=== PATIENT | male | born 1990 | race Caucasian/White ===

== ENCOUNTER 2019-03-26 09:13 | Emergency (ER) | payer SELFPAY ==
[2019-03-26 09:19] VITALS: BP 127/57; PULSE 62; RESP 18; TEMP 36.5; O2SAT 99
--- NOTE | 2019-03-26 09:46 | ED.GENADUL_ITS ---
Discharge Plan Disposition Patient Disposition: HOME Condition: Good Discharge Details Chief Complaint: Orthopedic Clinical Impression: Bursitis, prepatellar Primary Care Provider: Kierra Armijo ED Provider: Indigo Johnson Home Meds and New Rx's Prescriptions: No Action ibuprofen 800 MG tablet 800 mg PO TID Qty: 30 RF: 0 oxycodone 10 MG tablet 10 mg PO Q6H PRN PRNQty: 20 RF: 0 Discharge Instructions Instructions: Knee Bursitis (ED) Additional Instructions: Ice to the area frequently as discussed. Use anti-inflammatory [id number] as discussed with food in your stomach. Austen wrap to the area as discussed. Avoid kneeling directly on your knee. Please use knee protection when working to help prevent this in the future. Follow-up with orthopedic doctor if not improving in the next week as discussed. Observe for any signs of infection, redness, increase in swelling, pain, ill feeling or fever. Return to the emergency room for any concerns of infection or worsening. Stand Alone Forms: Work Release Referrals: Willard Rosales MD [ [facility] STAFF PHYSICIAN] - Medical Decision Making Patient presents for left knee swelling without obvious injury, trauma or fall. Patient does work on his knees and has been putting on a roof recently. Patient presents with an obvious left prepatellar bursitis without evidence of associated infection. Patient is full range of motion. No bony pain with palpation. Given his mechanism of injury of the benign exam I do not feel x-ray is warranted at this time. Rene encouraged, counseled regarding prepatellar bursitis without infection. Counseled regarding alarming symptoms for which the patient was stable and requested discharge. Prior to discharge, my usual and customary return precautions were reviewed with the patient - this included follow-up instructions and reasons to return to the Emergency Department if conditions worsens, does not improve as expected, or other new concerns arise. He should have return. Counseled regarding referral to orthopedic doctor if necessary. Austen wrap provided. Work note provided for few days of rest. Patient reports his understanding and agrees with plan of care. HPI General Date/Time Provider Initiated Documentation: 03/26/19 09:22 . HPI Narrative: This is a 28-year-old patient who presents for complaints of left knee swelling. Patient denies associated pain. Patient reports no limping gait. 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 Patient reports working on his knees. Patient reports onset of swelling in the last few days Patient denies any history of similar. No other concerns or complaints. No significant exacerbating factors. No relieving factors. Related Data Home Medications Medication Instructions Recorded Confirmed ibuprofen 800 mg PO TID #30 tab 10/31/12 oxycodone 10 mg PO Q6H PRN PRN #20 tab 08/15/16 Previous Rx's Medication Instructions Recorded ibuprofen 800 mg PO TID #30 tab 10/31/12 oxycodone 10 mg PO Q6H PRN PRN #20 tab 08/15/16 Allergies Allergy/AdvReac Type Severity Reaction Status Date / Time No Known Allergies Allergy Unverified 10/31/12 10:14 General Stated Complaint: Orthopedic SAUL: 4 Review of Systems All systems reviewed & are unremarkable except as noted in HPI and below Musculoskeletal Musculoskeletal: Denies abnormal gait, Denies deformity, Reports joint swelling, Reports stiffness and Denies tingling Neurologic Neurologic: Denies abnormal gait and Denies tingling PFSH Surgical History Appendectomy (~2008) Family History Mother No problems noted. Father No problems noted. Sister No problems noted. Brother No problems noted. Grandfather Personal history of malignant neoplasm LUNG Grandmother Personal history of malignant neoplasm BREAST Social History Smoking/Tobacco Use Status: Former Tobacco Use Alcohol Intake: current Alcohol Intake frequency: a few times a week Drug use: Occasionally Substance use type: marijuana Do you feel safe at home: Yes Exam Narrative Exam Narrative: CONST: Healthy appearing patient, in no acute distress. Well hydrated. Alert and alert. MUSCULOSKELETAL: Normal Gait. FROM of all extremities. Patient has an obvious left knee prepatellar bursitis without an identifiable infection. No erythema or warmth. Fluctuance noted at the prepatellar bursa with no associated joint effusion. Straight leg raise intact. Full range of motion. No significant joint line pain. No pain with patella shifting. SKIN: Normal. Dry. No rashes. NEURO: Alert and awake. Speech clear. PSYCH: Normal affect. Cooperative. Course Vital Signs Vital signs: Vital Signs Temperature 36.5 C 03/26/19 09:19 Pulse 62 03/26/19 09:19 Respiratory Rate 18 03/26/19 09:19 Blood Pressure 127/57 L 03/26/19 09:19 Pulse Oximetry 99 03/26/19 09:19 Temperature 36.5 C 03/26/19 09:19 Temperature Source Skin 03/26/19 09:19 Pulse 62 03/26/19 09:19 Respiratory Rate 18 03/26/19 09:19 Respiratory Effort Non-Labored 03/26/19 09:20 Blood Pressure 127/57 L 03/26/19 09:19 Blood Pressure Position Sitting 03/26/19 09:19 Pulse Oximetry 99 03/26/19 09:19 Oxygen Delivery Method Room Air 03/26/19 09:19 Oxygen Flow Rate 0 03/26/19 09:19
== END 2019-03-26 09:55 | disposition home or self-care (01) ==
PROVIDERS: Emergency Provider Physician Assistant; PCP Nurse Practitioner Family
DX: M70.42 Prepatellar bursitis, left knee (principal)
CPT/HCPCS: 99282

== ENCOUNTER 2021-09-03 01:57 | Outpatient (CLI) | payer BC, SELFPAY ==
[2021-09-03 12:35] LABS: Source Nasal/Nares
[2021-09-03 17:33] LABS: COVID-19 PCR Negative (Negative)
== END 2021-09-03 01:58 | disposition home or self-care (01) ==
LOC: LBO 01:58
PROVIDERS: PCP Family Medicine; Visit Provider Surgery
DX: Z20.822 Contact with and (suspected) exposure to COVID-19 (principal); Z01.818 Encounter for other preprocedural examination
CPT/HCPCS: 87635

== ENCOUNTER 2021-09-05 08:02 | Day surgery (SDC) | payer BC, SELFPAY ==
--- NOTE | 2021-09-04 14:34 | W.COLOREPORT ---
Colonoscopy Report Date of procedure: 09/05/21 Pre-op diagnosis general: Rectal bleeding/family history of ulcerative colitis Post-op diagnosis procedure note: other (Rectal polyps x2) Surgeon: Mandi Reagan Anesthesia Type: General:No Airway Estimated blood loss (mL): 1 Pathology: other Complications: None Disposition: same day Prep: Miralax/Dulcolax Retraction Time: 13 Procedure Description: After informed consent was obtained the patient was taken to the procedure room and placed in a left decubitous position. Monitors were applied and a time out was done. The patients name, date of , procedure, allergies to medications and metal in their body was reviewed. The patient was then sedated. Once sedated and comfortable a rectal exam was done. External exam was normal. Internal exam revealed a normal sphincter tone and no palpable masses. The prostate 13 The scope was then introduced and retrofelexed. No internal hemorrhoids were identified. He does have 2 small polyps in the rectum. One is superior it is a flat 5 mm polyp and this is removed with a cold biopsy forcep. Another is right at the anal rectal junction it is 5 mm but pedunculated and this is removed with a hot snare. All specimen is retrieved and no bleeding is noted the scope was then advanced to the cecum n difficulty. The TI and appendiceal orifice were identified. The prep was be BPS 3 in all segments for a total of 9. The scope was then slowly retracted over 13 minutes back into the rectum. There are no AVMs or diverticula visualized today. Biopsies are taken of the cecum/80/60/30 centimeters and the rectum. The mucosa appears pink and healthy with normal vasculature. There is no sign of ulcerative colitis or other abnormalities other than the 2 rectal polyps. Scope was removed and the patient was woken up and taken back to Same day surgery in stable condition. The patient tolerated the procedure well and there were no immediate complications. Follow up: The patient should follow up in 7 years, path pd unless they develop changes in bowel habits or other new gastrointestinal complaints.
--- NOTE | 2021-09-04 14:35 | PDOC.DSDIS_ITS ---
Discharge Plan Disposition Patient Disposition: HOME Condition: Good Discharge Details Reason For Visit: colo Attending Provider: Mandi Reagan Primary Care Provider: Zhen Dinero Home Meds and New Rx's Prescriptions: Discontinued polyethylene glycol 3350 17 gram/dose powder 238 g PO ONCE Qty: 238 0RF Rx Instructions: take per colonoscopy instructions bisacodyl [Dulcolax (bisacodyl)] 5 mg tablet,delayed release (DR/EC) 5 mg PO ONCE Qty: 4 0RF Rx Instructions: take per colonoscopy instructions No Action docusate sodium 100 mg capsule 100 mg PO BID Qty: 180 3RF Discharge Instructions Additional Instructions: DSU Colonoscopy Post- Op Instructions Instructions for Everyone who is given Anesthesia: For your safety, please do the following for the next twenty-four (24) hours: *Do Not operate a motor vehicle (car, truck, motorcycle, etc.) *Do Not drink alcoholic beverages or use any recreational drugs for the first 24 hours or while taking pain medications. The medications in your body may have a reaction that can be dangerous. *Do Not make any important decisions or sign any important papers. Findings:x2 polyps No hemorrhoids/fissures/or signs of ulcerative colitis Follow up: We did remove 2 polyps today as well as do some biopsies. My office will send a letter in 2 to 3 weeks time with results of the polyp pathology and when we want you to repeat the colonoscopy. 1. No lifting over 20 pounds or strenuous activity for the first 24 hours after your procedure. After 24 hours there are no restrictions on your activity but you may feel fatigued for a few days. 2. After you arrive home you may have a light meal and return to your normal diet as you can tolerate it without feeling sick to your stomach. 3. You may have a bloated, gaseous feeling in your belly (abdomen) after a colonoscopy. Passing gas and belching will help. Walking or lying down on your left side with your knees flexed may relieve the discomfort. Call the office at [phone] (Office) or [phone] (Hospital) right away if you notice any of the following: a.Vomiting of blood or ?coffee ground stools?. b.Rectal bleeding 1Tbsp, blood clots or continuous bleeding. c.Severe belly (abdominal) pain. d.A hard distended belly (abdomen) and an inability to pass gas. 4. Please don?t expect to have a normal BM (bowel movement) for 2-3 days after your procedure. 5. If there are questions regarding the findings of your procedure, please contact your doctor 6. If you are unable to contact your doctor with a problem, contact the hospital at [phone]. 7. Continue all your regular medications unless directed otherwise. I understand the above instructions and have no questions. Signature of Patient or Adult Escort Name of Responsible Adult Escort Signature of Nurse Date/Time Activity:: See above Diet:: See above Discharge Orders Discharge Orders: Discharge Order (Routine); Ordered 09/04/21 Ordered By: Mandi Reagan
[2021-09-05 08:27] VITALS: BP 121/81; PULSE 63; RESP 16; TEMP 36.6; O2SAT 98
[2021-09-05] MEDS: Lactated Ringers 1,000 ML 80 ML IV (08:31)
--- NOTE | 2021-09-05 08:46 | W.ANESPRE ---
General Info Date of Service Date Performed: 09/05/21 Height: 6 ft Weight: 89.2 kg Body Mass Index (BMI): 26.6 Surgical Procedure: Operation Date: 09/05/21 09:05 Proposed Procedure Side Surgeon p Colonoscopy w/poss. internal hemorrhoid banding Mandi eRagan, Meds Allergies and Home Medications Allergies Allergy/AdvReac Type Severity Reaction Status Date / Time No Known Allergies Allergy Unverified 09/05/21 08:26 Home Medication Medication Instructions Recorded docusate sodium 100 mg capsule 100 mg PO BID #180 cap 07/30/21 Current Visit Medications: Current Medications Generic Name Dose Route Start Last Admin Trade Name Freq PRN Reason Stop Dose Admin Hyoscyamine Sulfate 0.125 mg 09/04/21 14:34 Hyoscyamine 0.125 Mg Sl/Oral/Chew SL DIRECTED PRN Ringer's Solution 1,000 mls @ 80 mls/hr 09/05/21 06:00 09/05/21 08:31 IV 10/04/21 23:59 80 mls/hr INFUSION FAREED Administration IV Miscellaneous Supplies 1 each 09/05/21 06:00 Iv Access IV 10/04/21 23:59 DIRECTED FAREED Ondansetron HCl 4 mg 09/04/21 14:34 Ondansetron 4 Mg/2 Ml Vial IVP Q4H PRN PRN Nausea / Vomiting Sodium Chloride 0 ml 09/05/21 06:00 Normal Saline Flush 10 Ml Syr IV 10/04/21 23:59 PRN PRN Sodium Chloride 0 ml 09/05/21 06:00 Normal Saline 10 Ml Vial IJ 10/04/21 23:59 DIRECTED PRN Sterile Water 0 ml 09/05/21 06:00 Water,Injection,Sterile 10 Ml Vial IJ 10/04/21 23:59 DIRECTED PRN PFSH Active Problems Active Problems: Problem Status Onset Code Unwanted fertility Z30.09 Surgical History Surgical History Appendectomy (~2008) Tobacco Smoking/Tobacco Use Status: Former Tobacco Use Passive smoking exposure: No Second hand exposure: No Alcohol Alcohol Intake: current Alcohol intake frequency: a few times a week Substance Use Substance use: Occasionally Substance use type: marijuana Vital Signs and Lab Results Vital Signs Most Recent Vital Signs in EMR: Most Recent Vital Signs Temp Pulse Resp BP Pulse Ox 36.6 C 63 16 121/81 98 09/05/21 08:27 09/05/21 08:27 09/05/21 08:27 09/05/21 08:27 09/05/21 08:27 Lab Results Blood Type / Crossmatch: No Data to Display Complete Blood Count: No Data to Display Complete Metabolic Panel: No Data to Display Liver Function Panel: No Data to Display Coagulation Panel: No Data to Display Cardiac Panel: No Data to Display Arterial Blood Gas: No Data to Display Venous Blood Gas: No Data to Display Pancreas Panel: No Data to Display Thyroid Panel: No Data to Display Infectious Disease: Coronavirus (COVID-19)(PCR) Negative (Negative) 09/03/21 08:34 09/03/21 Coronavirus 2019 Source Nasal/Nares 09/03/21 08:34 09/03/21 Blood Cultures: No Data to Display Toxicology Panel: No Data to Display Anesthesia Assessment and Plan Anesthesia History Personal History: No History of Anesthesia Complications Family History: No Family History of Anesthesia Complications Exercise Tolerance Exercise Tolerance: Metabolic Equivalents>4 Pertinent Negatives Pertinent Negatives: No Symptoms of GERD Cardiac & Pulmonary Exam Cardiac Exam: Normal S1/S2 Heart Sounds Pulmonary Exam: Clear Bilateral Breath Sounds Implantable Cardiac Device Does patient have a Pacemaker or an ICD?: No Airway Exam Known Difficult Airway: No Mallampati Class: 2 Mouth Opening: Normal (> 3cm) Thyromental Distance: Greater than 3 cm Neck Range of Motion: Full ROM Neck Circumference: Normal Teeth Condition: Normal Dentition ASA Classification ASA Score: ASA 2 Emergency Case?: No NPO Status NPO Status: NPO Clears >2 hours, Solids >8 hours Anesthesia Plan Resuscitation Status: Full Code Anesthesia Technique: General Anesthesia Airway Planned: Natural Airway Monitors Used: Standard Monitors
[2021-09-05 09:06] VITALS: BMI 26.6
--- NOTE | 2021-09-05 09:28 | BOWEL_PTH ---
PATIENT: Thang Rai V LOC: [facility] U#:[id number] AGE/SX: 31/M ROOM: RE09/05/[address]: Mandi Reagan : 1990 BED: DIS: 09/05/2021 SPEC #: [id number] RECD: 09/05/21 12:29 STATUS: LILLY RE #: [id number] KACI: 09/05/21 09:[address]: Mandi Reagan DEPT: Surgical Specimen RECD BY: Saskia Giles ENTERED: 09/05/21 12:33 SP TYPE: Bowel OTHR DR: Zhen Dinero Tissues: 1 - BIOPSY BOWEL 2 - BIOPSY BOWEL 3 - BIOPSY BOWEL 4 - BIOPSY BOWEL 5 - BIOPSY BOWEL 6 - BIOPSY BOWEL 7 - BIOPSY BOWEL Procedures: GROSS AND MICRO LEVEL 4 Comments: [id number]
[2021-09-05 10:00] VITALS: BP 113/66; PULSE 74; RESP 18; TEMP 36.3; O2SAT 100
--- NOTE | 2021-09-05 10:12 | W.ANESPOSTOP ---
Postoperative Evaluation Date, Time and Location Date Performed: 09/05/21 Time Performed: 10:12 Patient Location: Day Surgery Unit Vital Signs Most Recent Imported Vital Signs: Most Recent Vital Signs Temp Pulse Resp BP Pulse Ox 36.6 C 63 16 121/81 98 09/05/21 08:27 09/05/21 08:27 09/05/21 08:27 09/05/21 08:27 09/05/21 08:27 Most Recent Manually Entered Vital Signs: Adult Blood Pressure: 113/64 Heart Rate: 74 Respirations: 18 Oxygen Saturation (%): 100 Temperature (C): 36.3 C Pain Score (0-10 Scale): 0 Pain Score Most Recent Pain Score: Most Recent Pain Score Pain Level 0 09/05/21 08:27 Assessment Mental Status: Awake (Alert & Oriented to Patient Baseline) Airway and Respiratory Function: Patent airway with normal (patient baseline) respiratory exam Cardiovascular Function: Hemodynamically Stable Hydration Status: Adequately Hydrated Nausea & Vomiting: No Nausea or Vomiting Pain: Pt. Denies Any Pain Peripheral Nerve Block: Patient did not receive a nerve block
[2021-09-05 10:15] VITALS: BP 113/64; PULSE 74; RESP 18; TEMPC 36.3; O2SAT 100
[2021-09-05 10:30] VITALS: BP 123/71; PULSE 55; RESP 18; TEMP 36.3; O2SAT 97
== END 2021-09-05 11:03 | disposition home or self-care (01) ==
PROVIDERS: PCP Family Medicine; Visit Provider Surgery
PROC: 0DJD8ZZ Inspection of Lower Intestinal Tract, Via Natural or Artificial Opening Endoscopic (ICD-10-PCS; CPT 45378; principal; 2021-09-05 09:00)
DX: K62.5 Hemorrhage of anus and rectum (principal); K62.1 Rectal polyp; Z83.79 Family history of other diseases of the digestive system; K63.89 Other specified diseases of intestine
CPT/HCPCS: 45385; 45380; 88305

== ENCOUNTER 2022-10-26 10:10 | Emergency (ER) | payer BC, SELFPAY ==
[2022-10-26 10:16] VITALS: BP 122/68; PULSE 66; RESP 18; TEMP 36.6; O2SAT 98
--- NOTE | 2022-10-26 10:25 | W.ED.GENAD ---
Discharge Plan Disposition Patient Disposition: Home Discharge Details Clinical Impression: Laceration of right middle finger, Immunization, tetanus-diphtheria Primary Care Provider: Jeremy Issa ED Provider: Dillon Pinzon Home Meds and New Rx's Prescriptions: Continued docusate sodium 100 mg capsule 100 mg PO BID Qty: 180 3RF Discharge Instructions Instructions: Finger Laceration (ED) Additional Instructions: You were seen in the emergency department for your finger laceration which was closed with Steri-Strips. As we discussed, if you develop fevers any foul-smelling drainage or any signs of pus from your finger please return to the emergency department. Please also keep your wound clean and dry. Follow-up with primary care provider next week as needed. Medical Decision Making This is an overall very well-appearing ambidextrous 32-year-old normothermic and not tachycardic male with right superficial long finger laceration which was irrigated extensively and cleaned by emergency department manufacturing process technician Chaz prior to primary closure using Steri-Strips which I performed. Patient will be placed by emergency department manufacturing process technician Chaz in a metal splint to decrease movement and enable wound healing. Patient and I discussed return indications including any fevers any foul-smelling drainage or any signs of pus from his wound. He is not a diabetic and he denies routine tobacco so my suspicion for any increased risk for infection is exceedingly low. No other injuries. No signs of necrotizing soft tissue infection. Tetanus was updated. We will proceed with an empiric trial of expectant outpatient management. HPI General Date/Time Provider Initiated Documentation: 10/26/22 10:25. HPI Narrative: This is an ambidextrous 32-year-old male arriving via private vehicle in setting of right middle finger laceration he sustained earlier today. Patient reports that he was pulling something from below a lawnmower. He reportedly caught his right middle finger on the blade. He did not fall or strike his head. He has not had daily tobacco user and denies history of insulin. He does smoke marijuana and occasionally drinks ethanol. His laceration is no longer bleeding. He is moving his finger normally he reports. Related Data Home Medications Medication Instructions Recorded Confirmed docusate sodium 100 mg capsule 100 mg PO BID #180 caps 07/17/22 07/17/22 Previous Rx's Medication Instructions Recorded docusate sodium 100 mg capsule 100 mg PO BID #180 caps 07/17/22 Allergies Allergy/AdvReac Type Severity Reaction Status Date / Time No Known Allergies Allergy Unverified 10/26/22 10:19 General Stated Complaint: Laceration SUAL: 4 PFSH All Active Problems (Updated 10/26/22 @ 10:36 by Dillon Pinzon MD) Laceration of right middle finger (Acute) Immunization, tetanus-diphtheria (Acute) Hyperplastic colon polyp (Acute) Unwanted fertility (Acute) Surgical History Appendectomy (~2008) History of colonoscopy (~09/05/21) Family History Father Ulcerative colitis Grandfather Personal history of malignant neoplasm LUNG Grandmother Personal history of malignant neoplasm BREAST Social History Smoking/Tobacco Use Status: Former Tobacco Use Quit Date: 05/31/18 Tobacco: How many years used: 7 Second Hand Exposure: No Smoking risk assessment performed?: Yes Alcohol Intake: current Alcohol Intake frequency: a few times a week Drug use: Daily Substance use type: marijuana Do you feel safe at home: Yes Do you feel safe in your relationship?: Yes Exam Narrative Exam Narrative: General: Well-appearing in no acute distress speaking in complete sentences. Head: Normocephalic, atraumatic. Eye: Pupils equal, round reactive to light. Extraocular eye movements intact. No conjunctival injection. No scleral icterus. Ear, nose, mouth, throat: Grossly normal inspection. Normal voice, handling secretions normally. Neck: Trachea midline. Cardiovascular: Well-perfused distal extremities. Respiratory: Nonlabored respiration. Gastrointestinal: Nondistended abdomen. Musculoskeletal: On the dorsal aspect of the right long finger just proximal to the PIP joint there is a superficial approximately 1.5 cm avulsion. No active bleeding. Range of motion intact in the right hand across the radial, median, and ulnar nerve distributions. Cap refill less than 2 seconds in the right hand. 2+ right radial pulse Skin: Normal for age and race, grossly normal temperature and turgor. No acute rash. Neurologic: Alert and appropriate, no apparent acute deficits. Psychiatric: Mood and manner are appropriate. Grooming and personal hygiene are appropriate. Course Vital Signs Vital signs: Vital Signs Temperature 36.6 C 10/26/22 10:16 Pulse 66 10/26/22 10:16 Respiratory Rate 18 10/26/22 10:16 Blood Pressure 122/68 10/26/22 10:16 Pulse Oximetry 98 10/26/22 10:16 Temperature 36.6 C 10/26/22 10:16 Temperature Source Skin 10/26/22 10:16 Pulse 66 10/26/22 10:16 Respiratory Rate 18 10/26/22 10:16 Respiratory Effort Normal 10/26/22 10:19 Blood Pressure 122/68 10/26/22 10:16 Blood Pressure Position Sitting 10/26/22 10:16 Pulse Oximetry 98 10/26/22 10:16 Oxygen Delivery Method Room Air 10/26/22 10:16 Oxygen Flow Rate 0 10/26/22 10:16 Pain Level 2 10/26/22 10:16 Procedures Laceration Laceration 1: Site: hand Side (If applicable): right Size (cm): 1.5 Description: flap Depth: simple, single layer Pre-repair: irrigated extensively Skin layer closed with: other (Steri-Strips) PAWSS Have you Been Recently Intoxicated or Drunk Within the Last 30 days?: Yes Have you Ever Experienced Previous Episodes of Alcohol Withdrawal?: No Have you ever Experienced Withdrawal Seizures?: No Have you ever Experienced Delirium Tremens(DT)s?: No Have you ever undergone Alcohol Rehabilitation Treatment (i.e, inpt ot outpatient treatment programs)?: No Have you ever Experienced Blackouts?: Yes Have you ever Combined Alcohol with other Downers within the last 90 days?: No Have you ever Combined Alcohol with any other Substance of Abuse during the last 90 days?: No Positive Blood Alcohol level on Presentation? [PCS.BAL]: No Evidence of Increased Autonomic Activity (i.e. HR>120, tremor, sweating, agitation, nausea)?: No Result: 2
== END 2022-10-26 10:54 | disposition home or self-care (01) ==
PROVIDERS: Emergency Provider Emergency Medicine; PCP Nurse Practitioner Family
DX: S61.212A Laceration without foreign body of right middle finger without damage to nail, initial encounter (principal); W29.3XXA Contact with powered garden and outdoor hand tools and machinery, initial encounter
CPT/HCPCS: 90471; 99284

== ENCOUNTER 2023-11-18 18:33 | Outpatient (REF) | payer BC, SELFPAY | END 2023-11-18 18:34 | disposition home or self-care (01) | LOC: LBN 18:33 | PROVIDERS: PCP Nurse Practitioner Family; Visit Provider Physician Assistant | DX: J02.9 Acute pharyngitis, unspecified (principal) | CPT/HCPCS: 87070 ==

== ENCOUNTER 2024-07-21 13:30 | Outpatient (REF) | payer BC, SELFPAY ==
[2024-07-21 13:44] LABS: ALT 33 U/L (16-63); AST 16 U/L (15-37); Albumin 3.9 g/dL (3.4-5.0); Alkaline Phosphatase 92 U/L (46-116); BUN 15 mg/dL (7-18); Bilirubin, Total 0.43 mg/dL (0.2-1.0); Calcium 9.2 mg/dL (8.5-10.1); Calculated LDL 137 mg/dL (<100); Chloride 109 mmol/L (98-107); Cholesterol 228 mg/dL (<200); Estimated GFR 102.55 (mL/min/1.73m2); Glucose 120 mg/dL (74-106); HDL Cholesterol 70 mg/dL (40-60); Potassium 4.6 mmol/L (3.5-5.1); Sodium 145 mmol/L (136-145); Total Protein 6.8 g/dL (6.4-8.2); Triglyceride 106 mg/dL (<150)
[2024-07-23 09:36] LABS: HIV-1/2 Ag & Ab Screen Negative (Negative)
[2024-07-24 10:16] LABS: Hepatitis C Ab w Rflx HCV PCR Negative (Negative)
[2024-07-24 10:28] LABS: Hep B Core Antibody Negative (Negative)
== END 2024-07-21 13:31 | disposition home or self-care (01) ==
LOC: NCHCN 13:30
PROVIDERS: PCP Nurse Practitioner Family; Visit Provider Nurse Practitioner Family
DX: Z11.3 Encounter for screening for infections with a predominantly sexual mode of transmission (principal); Z13.220 Encounter for screening for lipoid disorders; Z00.00 Encounter for general adult medical examination without abnormal findings; Z13.9 Encounter for screening, unspecified
CPT/HCPCS: 80053; 80061; 86704; 86803; 87389